=== PATIENT | male | born 1990 | race Caucasian/White ===

== ENCOUNTER 2017-05-11 00:12 | Emergency (ER) | payer OTHER ==
[~2017-05-11] VITALS: Ht 175.3 cm; Wt 94.6 kg
[2017-05-11 00:15] VITALS: BP 141/80; TEMP 36.8; Ht 175.3 cm; Wt 94.6 kg
--- NOTE | 2017-05-11 00:27 | EMERGENCY ROOM VISIT NOTE ---
History Report prepared by Adrián: Charlie Peoples Under the Supervision of: Dr. Romaine Rodríguez M.D. First contact with patient: 00:19 Chief Complaint: RESPIRATORY PROBLEMS Stated Complaint: DIZZY,COUGH,WHEEZING History of Present Illness The patient is a 26 year old male who presents to the Emergency Room with complaints of a persistent illness that started around 5 days ago. He states that his children are sick as well, one of them testing positive for influenza. The patient says that he has been having an occasionally productive cough, with fevers and chills. He says that his highest recorded temperature was 101.2. He says that he has vomited once. He states that he has been taking Tamiflu for the past 3 days, as he has some Tamiflu from the last time the he had influenza. The patient notes that he has been taking Mucinex for his sinus congestion. He notes no history of asthma. He says that he occasionally smoke marijuana, but does not use any tobacco products. Source of History: patient Onset: 5 days ago Position: other (global - illness) Quality: other (children are sick as well) Timing: other (persistent) Associated Symptoms: + fevers, + chills, + cough, + vomiting Note: Associated symptoms: Sinus congestion. Review of Systems See HPI for pertinent positives & negatives. A total of 10 systems reviewed and were otherwise negative. Past Medical & Surgical Medical Problems: (1) No chronic problems Family History No pertinent family history Social History Smoking Status: Never Smoker Smokeless Tobacco Use: No Drug Use: marijuana Housing Status: lives with family Occupation Status: employed Current/Historical Medications Scheduled Azithromycin (Zithromax Z-Silvino), 1 PKT PO UD Pseudoephedrine-Guaifenesin (Mucinex D), 1 TAB PO BID Scheduled PRN Acetaminophen W/ Dm (Cold & Cough Daytime 1000-30 mg/30Ml), 1 DOSE PO DIRECTED PRN for Cough Lqnjhodfrzxho-Eeifmvtigyq-Fx (Theraflu Cold & Cough), 1 DOSE PO DIRECTED PRN for COLD SYMPTOMS Allergies Coded Allergies: No Known Allergies (Unverified , 05/11/17) Physical Exam Vital Signs Date Time Temp Pulse Resp B/P (MAP) Pulse Ox O2 Delivery O2 Flow Rate FiO2 05/11/17 01:17 94 94 05/11/17 00:15 36.8 98 18 141/80 96 Room Air Physical Exam GENERAL: Patient is well appearing and in no acute distress. HEENT: No acute trauma, normocephalic atraumatic, mucous membranes moist, no nasal congestion, no scleral icterus. NECK: No stridor, no adenopathy, no meningismus, trachea is midline. LUNGS: Some mild crackles in the right lower lobe. Periodic dry cough. HEART: Regular rate and rhythm. No murmurs, rubs, gallops appreciated. ABDOMEN: Soft, nontender, bowel sounds positive, no masses appreciated, no peritonitis. BACK: No midline tenderness, no CVA tenderness EXTREMITIES: Normal motion all extremities, no cyanosis, no edema. NEUROLOGIC: Alert and oriented, no acute motor or sensory deficits, no focal weakness, cranial nerves grossly intact. SKIN: No rash, no jaundice, no diaphoresis. Medical Decision & Procedures ER Provider Diagnostic Interpretation: X ray results are stated below per my interpretation: Chest: 2 view: questionable infiltrate left lingula. No effusion. Normal heart border. Medications Administered Medications (Trade) Dose Ordered Sig/Yari Route Start Time Stop Time Status Last Admin Dose Admin Azithromycin (Zithromax Tab) 500 mg NOW STAT PO 05/11/17 01:00 05/11/17 01:01 DC 05/11/17 01:13 500 MG Hydrocodone Bit/ Homatropine Methylb (Hycodan Elix Homepack 5/1.5MG/ 5ML) 1 homepack UD ONCE PO 05/11/17 01:00 05/11/17 01:01 DC 05/11/17 01:12 1 HOMEPACK Albuterol (Ventolin Hfa Inhaler) 2 puffs NOW ONCE INH 05/11/17 01:00 05/11/17 01:01 DC 05/11/17 01:12 2 PUFFS ED Course 0020: The patient was evaluated in room B10. A complete history and physical exam was performed. 0100: Reevaluated the patient, and discussed antibiotic treatment. The patient requests that I prescribe him a Z-pack. Discussed results and discharge instructions: he verbalized understanding and agreement. The patient is ready for discharge. Medical Decision Differential: Viral, Pharyngitis, Cellulitis, Pneumonia, Influenza, Meningitis, Sepsis, Bacteremia, UTI/Pyelonephritis, Endocrine, Toxicologic, amongst other pathologies entertained. 26 yr old [place] for evaluation of cough and body aches consistent with viral like illness but now ongoing for several days. Children with influenza. He has been on Tamiflu for 3 days without improvement. CXR with questionable LLL infiltrative disease. Discussed pros cons abx, as well as options and he very much wishes to try Zpack (as opposed to no abx or other abx). Sating well and looks well. Will send with some hycodan so he can get some sleep as well as inhaler as he did not bring his from home. Medication Reconcilliation Current Medication List: was personally reviewed by me Blood Pressure Screening Patient's blood pressure: Elevated blood pressure Blood pressure disposition: Elevated BP felt to be situational Impression Primary Impression: Influenza-like illness Additional Impression: Pneumonia Scribe Attestation The scribe's documentation has been prepared under my direction and personally reviewed by me in its entirety. I confirm that the note above accurately reflects all work, treatment, procedures, and medical decision making performed by me. Departure Information Dispostion Home / Self-Care Prescriptions Azithromycin (ZITHROMAX Z-SILVINO) 250 Mg Tab 1 PKT PO UD, #1 PKT Prov: Romaine Rodríguez M.D. 05/11/17 Referrals No Doctor, Assigned (PCP) Patient Instructions ED Pneumonia Adult, My [facility] Problem Qualifiers
[2017-05-11] MEDS ORDERED: PHENPAK2 PO (00:43)
[2017-05-11] MEDS ORDERED: PSEU60TA80 PO (00:43)
[2017-05-11] MEDS ORDERED: ACET1LIQ PO (00:43)
[2017-05-11] MEDS ORDERED: HYCODAN 60ML BOTTLE HOMEPACK PO ONE (01:00)
[2017-05-11] MEDS ORDERED: ALBUTEROL HFA 8 GM INHALER INH ONE (01:00)
[2017-05-11] MEDS ORDERED: AZITHROMYCIN 250 MG TAB PO STA (01:00)
[2017-05-11] MEDS ORDERED: AZITTAB PO (01:02)
[2017-05-11 01:17] VITALS: PULSE 94; O2SAT 94
--- NOTE | 2017-05-11 06:29 | DIAGNOSTIC IMAGING REPORT ---
CHEST 2 VIEWS ROUTINE CLINICAL HISTORY: cough, fevers, chills cough. Dyspnea. COMPARISON STUDY: No previous studies for comparison. FINDINGS: Minimal parenchymal infiltrate left midlung. Lungs otherwise are clear. Diaphragms smooth. Costophrenic angles are sharp. IMPRESSION: Minimal parenchymal infiltrate left midlung The above report was generated using voice recognition software. It may contain grammatical, syntax or spelling errors. Electronically signed by: Juancarlos Segura M.D. 05/11/2017 6:28 AM Dictated Date/Time: 05/11/2017 6:27 AM
== END 2017-05-11 01:15 | disposition home or self-care (01) ==
LOC: C.EDB 00:13
DX: J11.00 Influenza due to unidentified influenza virus with unspecified type of pneumonia (principal); F12.90 Cannabis use, unspecified, uncomplicated; R03.0 Elevated blood-pressure reading, without diagnosis of hypertension